=== PATIENT | female | born 1995 | race Caucasian/White ===

== ENCOUNTER 2016-10-27 13:31 | Emergency (ER) | payer OTHER ==
[2016-10-27 13:54] VITALS: BP 124/67; PULSE 78; RESP 18; TEMP 98; O2SAT 98
--- NOTE | 2016-10-27 15:00 | UCPHY ---
[id number] [id number] 10/27/16 13:52 HPI/ROS: CHIEF COMPLAINT: Sore throat HISTORY OF PRESENT ILLNESS: 21-year-old female presents to Urgent Care complaining of sore throat over the last 2-3 days. Her mother has similar URI symptoms including sore throat, body aches and nasal congestion. The patient has not noticed a fever. She has a history of frequent strep pharyngitis. She was just treated with antibiotics a little over a month ago for strep pharyngitis. No rash. No abdominal pain. No shortness of breath. No headache. No neck or back pain. REVIEW OF SYSTEMS: Constitutional: No fever, no chills. Eyes: No double or blurry vision. ENT: Sore throat as above Respiratory: No cough, no shortness of breath. Cardiac: No chest pain. Gastrointestinal: No abdominal pain, vomiting or diarrhea. Genitourinary: No dysuria. Musculoskeletal: No neck or back pain. Skin: No rashes. Neurological: No headache. (Valery Cardozorina Tawana) Past Medical/Surgical History: Negative (Ingris Cardozo) Social History: Single. [employer]. (Ingris Cardozo) Physical Exam: General Appearance: Alert, no distress. 36.6, heart rate 78, 98% on room air Eyes: Pupils equal and round. Extraocular motions are all intact. ENT: Mouth: Mucous membranes moist. Mild posterior pharyngeal injection. No exudate. Uvular shift or swelling. No muffled voice or trismus. Respiratory: No wheezing, rhonchi, or rales, lungs are clear to auscultation. Cardiovascular: Regular rate and rhythm. Gastrointestinal: Abdomen is soft and nontender, no masses, no rebound or guarding, bowel sounds normal. Neurological: Alert and oriented x 3, cranial nerves II through XII grossly intact Skin: Warm and dry, no rashes. Musculoskeletal: Nontender to palpate along the cervical, thoracic or lumbar spine. Neck is supple. Extremities: Full range of motion and no peripheral edema. Psychiatric: Patient is oriented X 3, there is no agitation. (Ingris Cardozo) Constitutional: Initial Vital Signs Temperature (C) 36.6 C 10/27/16 13:52 Heart Rate 78 10/27/16 13:52 Respiratory Rate 18 10/27/16 13:52 Blood Pressure 124/67 H 10/27/16 13:52 O2 Sat (%) 98 10/27/16 13:52 O2 Delivery Mode Room Air Allergies/Adverse Reactions: Sulfa (Sulfonamide Antibiotics) Allergy (Intermediate, Verified 07/01/16 13:07) Rash Home Medications: Medication Instructions Recorded Proxtina 10/27/16 Medical Decision Making ED Course/Re-evaluation: 21-year-old female presents to urgent care with sore throat. Rapid strep test was negative. The patient does have a history of frequent strep pharyngitis infections. She was recently treated with antibiotics in August of 2016. She was given ENT referral. I do not think she needs antibiotics. She is comfortable being discharged home. (Ingris Cardozo) Urgent Care PA supervision Physician documentation: The patient was evaluated and managed by the physician research program assistant. My co- signature indicates that I have reviewed this chart and I agree with the findings and plan of care as documented. I am is secondary supervising physician. (Lamont Agarwal) Differential Diagnosis: Including but not limited to strep pharyngitis, viral syndrome, viral pharyngitis, peritonsillar abscess, retropharyngeal abscess, tonsillitis (Ingris Cardozo) Departure - Departure Disposition: Home, Routine, Self-Care Clinical Impression: Acute pharyngitis Condition: Good Instructions: Pharyngitis (ED) Additional Instructions: Adult Pain & Fever Control: We recommend Acetaminophen (Tylenol) and Ibuprofen (Motrin,Advil) for pain and fever control. When fever is high or pain severe, both drugs can be used at the same time, but at different intervals. Please note the time differences. Your dose is: Acetaminophen 1000mg every 4 to 6 hours Ibuprofen 600mg every 8 hours with food Note: do not take Acetaminophen with Hydrocodone (Vicodin, Lortab) or Oycodone (Percocet). These medications also contain Acetaminophen. No more than 3000mg of Acetaminophen should be taken in 24 hours (for an adult). Follow up with ENT to discuss frequent strep infections. Referrals: Daniel Randle MD [Medical Doctor] - As per Instructions (ENT on-call) - PQRS PQRS Measurement: Not applicable. (Ingris Cardozo)
== END 2016-10-27 15:15 | disposition home or self-care (01) ==
LOC: CED 13:31
DX: J02.9 Acute pharyngitis, unspecified (principal); M79.1 Myalgia; R09.81 Nasal congestion
CPT/HCPCS: 87880-PO; 99214-PO; G0463-PO

== ENCOUNTER 2016-12-02 15:49 | Emergency (ER) | payer OTHER ==
[2016-12-02 15:56] VITALS: BP 132/83; PULSE 97; RESP 18; TEMP 98; O2SAT 100
[2016-12-02] MEDS ORDERED: ONDANSETRON 4 MG/2 ML VIAL IVP ONE (16:06)
[2016-12-02] MEDS ORDERED: NS 1,000 ML IV ONE (16:06)
[2016-12-02] MEDS ORDERED: PANTOPRAZOLE SODIUM 40 MG VIAL IVP ONE (16:07)
--- NOTE | 2016-12-02 16:11 | UCPHY ---
H & P Patient Type: Established Chief Complaint Nursing Narrative: c/o lower abd pain with N/V/D- GB removed in Jun. @ [facility] - states feels like the pain HPI/ROS: CHIEF COMPLAINT: Nausea, vomiting diarrhea HISTORY OF PRESENT ILLNESS: 5-7 days of vomiting and diarrhea. This gradual onset constant duration. Some chills but no fevers that she knows of. No chest pain or cough. No headache with some body aches. No chills. No urinary complaints. No flank pain. Worse with intake by mouth. Improves when NPO. Does keep down some liquids in between bouts of vomiting diarrhea. No bloody stools or emesis. No other associated complaints or modifying factors. No recent travel. No known sick contacts. REVIEW OF SYSTEMS: Ten systems reviewed and are negative unless otherwise noted in the HPI EXAMINATION: General Appearance: Alert, no distress Head: normocephalic, atraumatic Eyes: Pupils equal and round, no conjunctival pallor or injection . EOMs intact. ENT, Mouth: Mucous membranes moist . Uvula midline. No erythema or edema. Airway is patent. Neck: Normal inspection, supple, non-tender . Painless range of motion all planes. No meningismus Respiratory: Lungs are clear to auscultation. No wheezing, rhonchi or crackles Cardiovascular: Regular rate and rhythm. No murmur. Pulses are intact distally Gastrointestinal: Abdomen is soft. Mild tenderness to the periumbilical region. No point tenderness in the right lower quadrant. Negative McBurney. Negative heel jar. Negative obturator. No Rovsing. No tympany. No rigidity. no CVA tenderness. Non-acute abdomen. Neurological: A&O, nonfocal, normal gait Skin: Warm and dry, no rash Extremities: Nontender, no pedal edema Psychiatric: Mood and affect normal DIFFERENTIAL DIAGNOSES: Including but not limited to Gastroenteritis, gastritis, enteritis, colitis, viral diarrhea, influenza MDM: 4:00 p.m. nausea, vomiting, diarrhea, Malaise, body aches, headache. she has a history appearance of viral illness. She is in no acute distress with stable vital signs. Abdominal exam is mild tenderness across the periumbilical. There is no point tenderness. No guarding or rebound. No Rovsing. Negative heel jar or obturator sign. Laboratory studies, IV fluids, anti-emetic, and Protonix of all been ordered. Additionally I will check a flu test. 6:00 p.m. nausea, vomiting and diarrhea with laboratory studies that are most consistent with a viral etiology. Abdominal exam is benign. She is resting comfortably in no acute distress. She is feeling significantly better after IV fluid and nausea medication. Tolerating p. o. intake in the ER. Ambulatory. I do not feel she warrants CT scan of the abdomen and pelvis at this time she is feeling much better and has a benign abdominal examination in the presence of normal labs. We discussed discharge home with continuing anti emetic. She is comfortable with this plan. We discussed return to the emergency department precautions as listed below and I would like her to follow up with her primary care physician. She is to return to this department in 1 day if she has no improvement for us to re-evaluate her abdomen. She is comfortable this plan and discharged home in stable condition following IV fluid resuscitation. ED Precautions: Worsening pain. Fever. Bloody stools. Bloody emesis. Constipation or diarrhea. SUPERVISION:This patient was independently evaluated without the aide of supervising physician. Source: Patient, Family Exam Limitations: No limitations - Personal History LMP (Females 10-55): 22-28 Days Ago Current Tetanus Diphtheria and Acellular Pertussis (TDAP): Yes - Medical/Surgical History Hx Asthma: No Hx Chronic Respiratory Disease: No Hx Diabetes: No Hx Cardiac Disease: No Hx Renal Disease: No Hx Cirrhosis: No Hx Alcoholism: No Hx HIV/AIDS: No Hx Splenectomy or Spleen Trauma: No Other PMH: GB - Family History Significant Family History: No pertinent family hx - Social History Smoking Status: Never smoked Constitutional: Initial Vital Signs Temperature (C) 98 F 12/02/16 15:54 Heart Rate 97 12/02/16 15:54 Respiratory Rate 18 12/02/16 15:54 Blood Pressure 132/83 H 12/02/16 15:54 O2 Sat (%) 100 12/02/16 15:54 O2 Delivery Mode Room Air Allergies/Adverse Reactions: Sulfa (Sulfonamide Antibiotics) Allergy (Intermediate, Verified 07/01/16 13:07) Rash Home Medications: Medication Instructions Recorded Proxtina 10/27/16 Ondansetron Odt [Zofran Odt 4 mg 4 mg PO Q4 PRN #12 tab 12/02/16 (*)] Promethazine HCl 25 mg PO Q6-8PRN PRN #15 tablet 12/02/16 Wellbutrin Sr 12/02/16 Medical Decision Making - Data Points Laboratory Results: Laboratory Results 12/02/16 17:00 12/02/16 17:00 12/02/16 12/02/16 12/02/16 17:25 17:10 17:00 WBC 8.70 10^3/uL (3.80-9.50) RBC 4.98 10^6/uL (4.18-5.33) Hgb 14.5 g/dL (12.6-16.3) Hct 41.9 % (38.0-47.0) MCV 84.1 fL (81.5-99.8) MCH 29.1 pg (27.9-34.1) MCHC 34.6 g/dL (32.4-36.7) RDW 12.7 % (11.5-15.2) Plt Count 328 10^3/uL (150-400) MPV 9.2 fL (8.7-11.7) Neut % (Auto) 54.0 % (39.3-74.2) Lymph % (Auto) 35.1 % (15.0-45.0) Wheeler % (Auto) 7.0 % (4.5-13.0) Eos % (Auto) 2.8 % (0.6-7.6) Baso % (Auto) 0.8 % (0.3-1.7) Nucleat RBC Rel Count 0.0 % (0.0-0.2) Absolute Neuts (auto) 4.70 10^3/uL (1.70-6.50) Absolute Lymphs (auto) 3.05 H 10^3/uL (1.00-3.00) Absolute Monos (auto) 0.61 10^3/uL (0.30-0.80) Absolute Eos (auto) 0.24 10^3/uL (0.03-0.40) Absolute Basos (auto) 0.07 10^3/uL (0.02-0.10) Absolute Nucleated RBC 0.00 10^3/uL (0-0.01) Immature Gran % 0.3 % (0.0-1.1) Immature Gran # 0.03 10^3/uL (0.00-0.10) Sodium 144 mEq/L (134-144) Potassium 4.0 mEq/L (3.5-5.2) Chloride 101 mEq/L (97-110) Carbon Dioxide 26 mEq/l (22-31) Anion Gap 17 H mEq/L (8-16) BUN 8 mg/dL (7-23) Creatinine 0.8 mg/dL (0.6-1.0) Estimated GFR > 60 Glucose 83 mg/dL (70-100) Calcium 9.9 mg/dL (8.5-10.4) Total Bilirubin 0.6 mg/dL (0.1-1.4) Conjugated Bilirubin 0.5 mg/dL (0.0-0.5) Unconjugated Bilirubin 0.1 mg/dL (0.0-1.1) AST 43 IU/L (14-46) ALT 63 H IU/L (9-52) Alkaline Phosphatase 93 IU/L (38-126) Total Protein 7.9 g/dL (6.3-8.2) Albumin 4.4 g/dL (3.5-5.0) Lipase 97.0 IU/L (23-300) Beta HCG, Qual NEGATIVE Urine Color YELLOW Urine Appearance CLEAR Urine pH 6.0 (5.0-7.5) Ur Specific [place] 1.015 (1.002-1.030) Urine Protein NEGATIVE (NEGATIVE) Urine Ketones NEGATIVE (NEGATIVE) Urine Blood NEGATIVE (NEGATIVE) Urine Nitrate NEGATIVE (NEGATIVE) Urine Bilirubin NEGATIVE (NEGATIVE) Urine Urobilinogen 0.2 EU (0.2-1.0) Ur Leukocyte Esterase NEGATIVE (NEGATIVE) Ur Culture Indicated? NOT INDICATED (NI) Urine Glucose NEGATIVE (NEGATIVE) Influenza Typ A,B (DFA) NEGATIVE FOR FLU (NEGATIVE) Departure - Departure Disposition: Home, Routine, Self-Care Clinical Impression: Nausea & vomiting Qualifiers: Vomiting type: unspecified Vomiting Intractability: non-intractable Qualifier Code: (R11.2) Nausea with vomiting, unspecified Diarrhea Qualifiers: Diarrhea type: unspecified type Qualifier Code: (R19.7) Diarrhea, unspecified Abdominal pain Qualifiers: Abdominal location: periumbilical Qualifier Code: (R10.33) Periumbilical pain Condition: Good Instructions: Acute Nausea and Vomiting (ED), Acute Diarrhea (ED) Additional Instructions: follow-up with primary care physician for definitive care. Return to ER for any worsening pain, persistent vomiting, fever or discomfort Referrals: TOD BAUMANN [Primary Care Provider] - As per Instructions Prescriptions: Promethazine HCl 25 mg PO Q6-8PRN PRN #15 tablet PRN Reason: Nausea/Vomiting, Use 1st Ondansetron Odt [Zofran Odt 4 mg (*)] 4 mg PO Q4 PRN #12 tab PRN Reason: Nausea/Vomiting, Use 1st - PQRS PQRS Measurement: not applicable
[2016-12-02 17:10] LABS: % IMMATURE GRANULYOCYTES 0.3 % (0.0-1.1); ABSOLUTE IMMATURE GRANULOCYTES 0.03 10^3/uL (0.00-0.10); ADD DIFF? NO; ADD MORPH? NO; ADD SCAN? NO; ATYPICAL LYMPHOCYTE FLAG 0 (0-99); FRAGMENT RBC FLAG 0 (0-99); HEMATOCRIT 41.9 % (38.0-47.0); HEMOGLOBIN 14.5 g/dL (12.6-16.3); LEFT SHIFT FLG 0 (0-99); LIPEMIA HEMOLYSIS FLAG 90 (0-99); MEAN CELL HEMOGLOBIN 29.1 pg (27.9-34.1); MEAN CELL HEMOGLOBIN CONCENTR. 34.6 g/dL (32.4-36.7); MEAN CELL VOLUME 84.1 fL (81.5-99.8); MEAN PLATELET VOLUME 9.2 fL (8.7-11.7); PLATELET CLUMPS FLAG 0 (0-99); PLATELET COUNT 328 10^3/uL (150-400); RED BLOOD CELL COUNT 4.98 10^6/uL (4.18-5.33); RED CELL DISTRIBUTION WIDTH 12.7 % (11.5-15.2)
[2016-12-02 17:26] LABS: ALANINE AMINOTRANSFERASE 63 IU/L (9-52); ALBUMIN 4.4 g/dL (3.5-5.0); ALKALINE PHOSPHATASE 93 IU/L (38-126); ANION GAP 17 mEq/L (8-16); ASPARTATE AMINOTRANSFERASE 43 IU/L (14-46); BILIRUBIN,TOTAL 0.6 mg/dL (0.1-1.4); BILIRUBIN-CONJUGATED 0.5 mg/dL (0.0-0.5); BILIRUBIN-UNCONJUGATED 0.1 mg/dL (0.0-1.1); CALCIUM 9.9 mg/dL (8.5-10.4); CARBON DIOXIDE 26 mEq/l (22-31); CHLORIDE 101 mEq/L (97-110); CREATININE 0.8 mg/dL (0.6-1.0); GLOMERULAR FILTRATION RATE > 60; GLUCOSE 83 mg/dL (70-100); SODIUM 144 mEq/L (134-144); TOTAL PROTEIN 7.9 g/dL (6.3-8.2)
[2016-12-02 17:40] LABS: COLOR YELLOW; LEUKOCYTE ESTERASE,URINE NEGATIVE (NEGATIVE); NITRITE,URINE NEGATIVE (NEGATIVE)
[2016-12-02] MEDS ORDERED: ONDANSETRON 4MG PREPACK#2 BTL TAKEHOME ONE (18:08)
[2016-12-02] MEDS ORDERED: PROMETHAZINE 25 MG PREPACK #4 BTL TAKEHOME ONE (18:08)
== END 2016-12-02 19:03 | disposition home or self-care (01) ==
LOC: CED 15:49
DX: R11.2 Nausea with vomiting, unspecified (principal); R19.7 Diarrhea, unspecified; R10.33 Periumbilical pain
CPT/HCPCS: 80048-PO; 80076-PO; 81003-PO; 83690-PO; 84703-PO; 85025-PO; 87400-PO; 96361-PO; 96374-PO; 96375-PO; G0463-PO; J2405